=== PATIENT | female | born 1940 | race Caucasian/White ===

== ENCOUNTER 2020-06-13 08:39 | Inpatient (IN) | payer MEDICARE, OTHER, SELFPAY ==
[2020-06-13] VITALS (24 sets, daily range): BP systolic 66–150; BP diastolic 40–98; PULSE 71–101; RESP 11–22; TEMP 36.2–36.8; O2SAT 73–100
--- NOTE | ~2020-06-13 | XR_ITS ---
EXAMINATION: XR chest 1V INDICATION: Chest pain TECHNIQUE: AP view of the chest is obtained. COMPARISON: None available FINDINGS: There are minimal airspace opacities of the left lung base. No pleural effusion or pneumoth orax is identified. The cardiomediastinal silhouette is normal. There is moderate lower thoracic spon dylosis. IMPRESSION: 1. Minimal airspace opacities of the left lung base, consistent with atelectasis versus pneumonia. Reviewed, dictated and finalized at location A. IMPRESSION: 1. Minimal airspace opacities of the left lung base, consistent with atelectasi s versus pneumonia.
--- NOTE | ~2020-06-13 | CT_ITS ---
EXAMINATION: CT thoracic lumbar wo con DATE: 06/13/2020 11:15 INDICATION: Increasing immobility post lumbar spine surgery TECHNIQUE: Computed tomography (CT) of the thoracic and lumbar spine was performed without intravenou s contrast. The dose-length product (DLP) was 1952.89 mGy-cm. Iterative reconstruction was used. COMPARISON: None FINDINGS: Thoracic spine: There are 2 mm of anterolisthesis of C7 on T1. Thoracic vertebral body alignment is n ormal. There is no fracture. There is advanced loss of intervertebral disc space height at T9-10 with associated endplate remodeling. There is mild to moderate loss of intervertebral disc space height t hroughout the remainder of the thoracic spine. The paraspinal soft tissues are unremarkable. There ar e minimal airspace opacities in the left lower lobe. Lumbar spine: There are changes of anterior and posterior fusion and laminectomy at L4-5. There are 3 mm of retrolisthesis of L3 on L4 and 3 mm of anterolisthesis of L4 on L5. There is severe loss of in tervertebral disc space height at L2-3 and moderate loss of intervertebral disc space height at L3-4. The vertebral body heights are maintained. No definite fluid collection is identified although evalu ation is limited by streak artifact. IMPRESSION: 1. Moderate lower thoracic spondylosis without acute findings. 2. Surgical changes at L4-5 without definite abnormality identified, sensitivity limited by streak ar tifact. 3. Left basilar airspace opacity, consistent with atelectasis and pneumonia. Reviewed, dictated and finalized at location A. IMPRESSION: 1. Moderate lower thoracic spondylosis without acute findings. 2. Surgical changes at L4-5 without definite abnormality identified, sensitivit y limited by streak artifact. 3. Left basilar airspace opacity, consistent with atelectasis and pneumonia.
--- NOTE | ~2020-06-13 | CT_ITS ---
EXAMINATION: CT brain wo con INDICATION: Altered mental status COMPARISON: None TECHNIQUE: Standard unenhanced head CT. The dose-length product (DLP) was 908.00 mGy-cm. The mA was a djusted according to patient size. Iterative reconstruction technique was employed. FINDINGS: There is no acute intraparenchymal hemorrhage. No evidence of mass lesion. No evidence of a cute infarction. There is mild periventricular and subcortical hypodensity probably related to small vessel ischemic disease. There is mild prominence of the sulci and ventricles related to cerebral atr ophy. Intracranial calcified cerebral atherosclerosis is noted. There are no extra-axial collections. There is no mass effect or midline shift. The orbits and soft tissues are unremarkable. The visuali zed sinuses and mastoid air cells are well aerated. IMPRESSION: 1. No acute intracranial abnormality. 2. Age related findings. Reviewed, dictated and finalized at location A.
--- NOTE | 2020-06-13 08:43 | ED.CHESTPAIN ---
HPI - Chest Pain General Chief Complaint: Chest Pain Stated Complaint: CP Time Seen by Provider: 06/13/20 08:43 Source: family and EMS Mode of arrival: EMS Limitations: clinical condition and dementia History of Present Illness HPI narrative: Patient is a 80-year-old female with a history of hypertension, hyperlipidemia, spinal stenosis, recent surgery beginning of May at [facility] [place], at which patient developed weakness while in recovery at [facility],then hospitalized at [facility] for a week. Pt had negative work up at [facility] per daughter and was discharged to [facility] for rehabilitation. Since that time, patient has continued to have transient altered mentation for which the patient has been worked up for dementia and stroke. Pt also with recurrent UTI since being at [facility]. Much of history is provided by daughter. Prior to her surgery she was completely independent in all her activities of daily living and was supposed to go home after the surgery. Currently, this morning the patient was reporting to care staff that she was having chest pain thus an ambulance was called to have her evaluated. Patient was transported to our facility in stable condition. Apparently she does reside on a floor with positive COVID patients at [place]. She has recently tested negative for this. Pt is currently confused. She is denying fever, chills or chest pain. At the time of my assessment, patient is denying any chest pain but she is not reliable historian and I cannot obtain any history from her. Per daughter in the room, pt often is confused and this has been constant over the past two weeks. Related Data Home Medications Medication Instructions Recorded Confirmed citalopram 20 mg PO DAILY 06/13/20 clopidogrel 75 mg PO DAILY 06/13/20 docusate sodium 100 mg PO DAILY 06/13/20 enoxaparin 40 mg SUBCUT DAILY 06/13/20 famotidine 20 mg PO BID 06/13/20 hydrochlorothiazide 12.5 mg PO DAILY 06/13/20 lorazepam [Ativan] 0.5 mg PO BID PRN 06/13/20 losartan 100 mg PO DAILY 06/13/20 melatonin 5 mg PO HS PRN 06/13/20 tapentadol [Nucynta] 50 mg PO Q4-6H PRN 06/13/20 Allergies Allergy/AdvReac Type Severity Reaction Status Date / Time No Known Allergies Allergy Verified 06/13/20 09:51 Review of Systems Review of Systems: ROS unobtainable: Yes unobtainable due to mental status PMFSH Past Medical History Medical History (Updated 06/13/20 @ 12:57 by Natalie Villafuerte MD) Hyperlipidemia Hypertension Spinal stenosis Urinary tract infection Surgical History Surgical History (Updated 06/13/20 @ 09:12 by Natalie Villafuerte MD) History of lumbar surgery Social History Social History (Updated 06/13/20 @ 09:12 by Natalie Villafuerte MD) Smoking status: Never smoker Alcohol intake: never Substance use: never Living arrangements: long-term Gender identity (if verbalized by the patient): Female Exam Narrative: Exam Narrative: GENERAL: Awake, alert HEAD: Normocephalic, atraumatic. EYES: PERRLA and EOMI. ENT: Nares clear, no rhinorrhea or epistaxis. Mucous membranes dry NECK: Supple. CHEST: No respiratory distress, breathing even and non labored HEART: Regular rate, sinus rhythm ABDOMEN:Non distended, non tender EXTREMITIES: Normal range of motion. No edema. Thorax: Lumbar surgical site is clean, dry and intact without dehiscence purulent discharge or malodor, non tender SKIN: Warm, dry, no rash. NEURO:No focal deficits. Alert and oriented x1, can identify her name, can identify daughter in the room, understands she is at a hospital, but cannot name hospital Course Vital Signs Vital signs: Vital Signs Temperature 36.8 C 06/13/20 08:42 Pulse Rate 97 06/13/20 08:42 Respiratory Rate 20 06/13/20 08:42 Blood Pressure 122/90 06/13/20 08:42 Pulse Oximetry 96 06/13/20 08:42 Temperature 36.8 C 06/13/20 08:42 Pulse Rate 75 06/13/20 13:49 Re
--- NOTE | 2020-06-13 08:52 | ECG_ITS ---
Measurements Intervals [place] Rate: 92 P: 56 NE: 177 QRS: 22 QRSD: 93 T: 61 QT: 364 QTc: 452 Interpretive Statements SINUS RHYTHM POSSIBLE LEFT ATRIAL ENLARGEMENT BASELINE ARTIFACT- I, II, III, AVR, AVL, AVF, V1-V6 BORDERLINE ECG Electronically Signed On 06-17-2020 12:43:03 CDT by Familia Dorantes D.O.
[2020-06-13] MEDS: ASPIRIN 81 MG CHEWABLE TABLET 324 MG PO (09:52)
[2020-06-13 09:55] LABS: Basophils Percent Auto 0.4 % (0.2-1.2); Eosinophils Absolute Auto 0.5 K/mm3 (0-0.3); Hematocrit 36.2 % (37.0-47.0); Hemoglobin 12.5 g/dL (12.0-15.0); Immature Granulocyte Absolute 0.04 K/mm3 (0.00-0.031); Immature Granulocyte Percent A 0.4 % (0-0.5); Lymphocytes Absolute Auto 1.14 K/mm3 (0.9-3.2); Lymphocytes Percent Auto 11.7 % (18.3-44.2); Mean Corpuscular HGB Conc 34.5 g/dl (32-36); Mean Corpuscular Hemoglobin 31.8 pg (26-34); Mean Corpuscular Volume 92.1 fl (80-100); Mean Platelet Volume 10.8 fl (7.4-10.4); Monocytes Absolute Auto 1.3 K/mm3 (0.1-0.6); Monocytes Percent Auto 13.7 % (2.6-8.5); Neutrophils Absolute Auto 6.7 K/mm3 (1.3-6.7); Neutrophils Percent Auto 68.8 % (45.5-73.1); Platelet Count Result 294 k/mm3 (150-375); Red Blood Count 3.93 M/mm3 (4.2-5.4); White Blood Count 9.7 K/mm3 (4.5-10.0)
[2020-06-13 10:08] LABS: Alanine Aminotransferase 30 U/L (4-35); Albumin Level 3.6 g/dL (3.5-5.1); Alkaline Phosphatase 89 U/L (38-126); Anion Gap 10 mmol/L (8-16); Aspartate Amino Transferase 27 U/L (14-36); Bilirubin,Total 0.5 mg/dL (0.2-1.3); Blood Urea Nitrogen 67 mg/dL (7-17); Calcium 9.4 mg/dL (8.4-10.2); Carbon Dioxide 27 mmol/L (22-30); Chloride 92 mmol/L (98-107); Estimated Glomerular Filt Rate 19; Glucose 127 mg/dL (65-105); Sodium 129 mmol/L (137-145)
[2020-06-13 10:11] LABS: INR 1.1; Prothrombin Time 14.2 Seconds (11.1-14.7)
[2020-06-13 10:12] LABS: Partial Thromboplastin Time 29.7 SECONDS (22.3-36.8)
[2020-06-13 10:27] LABS: Add Urine Microscopic? YES; Appearance Urine Turbid (Clear); Bacteria Urine 4+ /hpf; Bilirubin Urine Negative (Negative); Blood Urine Negative (Negative); Color Urine Yellow (Yellow); Glucose Urine UA 1+ mg/dL (Negative); Ketones Urine Negative (Negative); Leukocyte Esterase Ur 2+ LEU/UL (Negative); Nitrate Urine Negative (Negative); Protein Urine 2+ mg/dL (Negative); Specific Grav Ur 1.018 (1.001-1.035); Urobilinogen Urine Negative mg/dL (<2.0); WBC Clumps Urine Present /HPF; WBC Urine >75 /hpf
[2020-06-13] MEDS: SODIUM CHLORIDE 0.9% IV 1,000 ML 999 ML IV CONT ×2 (10:36)
[2020-06-13 10:56] LABS: Troponin I 0.095 ng/mL (0.000-0.034)
--- NOTE | 2020-06-13 11:04 | PC.NURSE ---
Pt taken to CT and x ray
[2020-06-13 11:09] LABS: Lactic Acid Reflex 1.8 mmol/L (0.7-2.1)
[2020-06-13] MEDS: SODIUM CHLORIDE 0.9% IV 1,000 ML 150 ML IV CONT (13:37)
[2020-06-13 13:45] LABS: Troponin I 0.075 ng/mL (0.000-0.034)
--- NOTE | 2020-06-13 15:00 | PM.IMHP ---
H&P: HPI History of Present Illness Date/Time: 06/13/20 15:00 Chief complaint: Chest pain. Narrative: Consuelo Marie is a 80-year-old female with hypertension, GERD, depression, and anxiety presented to the emergency department earlier today via EMS from [place] with complaints of chest pain. I have supplemented the following history via discussions with her daughters by phone, with the patient's permission, as the patient has waxing and waning confusion and delirium. At the time my evaluation, she believes that she is in a bath tub and that no one will let her out. According to her nurse, she has had some hallucinations as well, for example she reports being at a strip club. Other times throughout the interview, she seems to provide a normal history and is appropriate. In any regard, a little over a month ago she had an outpatient lumbar fusion and laminectomy and was hospitalized at [facility] in [place] following that procedure due to weakness which apparently developed in the PACU. It is my understanding that she had a pretty significant and negative workup during a nearly weeks long hospitalization. She was discharged to [facility] for rehabilitation, and since that time she has had transient episodes of delirium, has been treated for urinary tract infections, and has been evaluated by specialists to investigate for possible dementia. Due to her high anxiety, she was started on Ativan 0.5 mg b.i.d. which her daughter seems to think is causing more issues; at home the patient uses CBD gummies for her average anxiety. This morning she complained of chest pain to staff at [facility], and was brought to the emergency department via ambulance for evaluation. According to the EMS run report, she reported midsternal chest pressure without associated symptoms however was a bit nauseated earlier in the morning. She has not had a recurrence of this chest discomfort since being admitted to the floor, and she relates to me that she was having this chest pain earlier today because of her anxiety about being at [facility], and she tells me that is horrible there and she is never going to return. She has no obvious complaints at this time, and she perseverates on the fact that she is never going back to [facility] and that she wants to go home. In the emergency department she was found to have an acute kidney injury and is quite dehydrated. Her blood pressures were running soft but have responded to IV fluid rehydration. The patient tells me that she has not been eating or drinking much at [facility] because she is not hungry and she is depressed being there. Her urinalysis is concerning for urinary tract infection and she endorses dysuria and occasional incontinence and urgency with hesitancy. A Schafer catheter has since been placed and yielded approximately 300 cc of relatively clear urine. Troponins were mildly elevated, and she is being admitted in this setting for further evaluation. Also of note, she was swabbed for COVID-19 emergency department given findings of atelectasis versus pneumonia at the left base on imaging today. Although she has no symptoms to suggest COVID-19, we were informed by EMS that she is on the COVID unit at [facility] for unclear reasons. Review of Systems Review of Systems: Narrative: Twelve systems were reviewed with pertinent positives and negatives as per HPI. A review of systems is limited given her confusion and delirium. she does specifically deny fever, chills, sweats, cough, current chest pain, palpitations, shortness of breath, current nausea, vomiting, and diarrhea. She does not believe she has been moving her bowels very much. She denies dysphagia. No headache or focal weakness. She admits that sometimes she is forgetful but She is very aware of her confusion over the past month or so. She is not having any pain at the site of her lumbar surgery. She denies saddle anesthesia, incontinence, paresthesias, and focal weakness. Except as documented
--- NOTE | 2020-06-13 15:08 | PC.NURSE ---
Pt admitted to ICU-6 from ER, pt is on room air, awake and alert, confused. NSR on monitor, BP stable.
[2020-06-13] MEDS: FAMOTIDINE 20 MG TABLET PO (19:14)
[2020-06-13] MEDS: busPIRone HCL 2.5 MG, busPIRone HCL 5 MG 7.5 MG PO (20:27)
[2020-06-13 20:39] LABS: Anion Gap 6 mmol/L (8-16); Blood Urea Nitrogen 50 mg/dL (7-17); Calcium 8.6 mg/dL (8.4-10.2); Carbon Dioxide 25 mmol/L (22-30); Chloride 100 mmol/L (98-107); Creatine Kinase 89 U/L (30-135); Estimated CRCL calculation 23 ml/min; Estimated Glomerular Filt Rate 27; Glucose 99 mg/dL (65-105); Magnesium 1.9 mg/dL (1.6-2.3); Sodium 131 mmol/L (137-145)
[2020-06-13 21:35] LABS: Folic Acid 14.4 ng/mL (2.76->20)
[2020-06-13 22:52] LABS: Troponin I 0.079 ng/mL (0.000-0.034)
[2020-06-13] MEDS: POTASSIUM CHLORIDE 20 MEQ PACKET (FOR LIQUID) PO (23:52)
[2020-06-13] MEDS: SODIUM CHLORIDE 0.9% IV 1,000 ML 100 ML IV CONT (23:53)
[2020-06-14] VITALS (14 sets, daily range): BP systolic 89–158; BP diastolic 45–95; PULSE 79–103; RESP 13–23; TEMP 36.2–36.7; O2SAT 95–100; BMI 31.6
[2020-06-14 03:36] LABS: Hematocrit 22.8 % (37.0-47.0); Hemoglobin 7.9 g/dL (12.0-15.0); Mean Corpuscular HGB Conc 34.6 g/dl (32-36); Mean Corpuscular Hemoglobin 32.6 pg (26-34); Mean Corpuscular Volume 94.2 fl (80-100); Mean Platelet Volume 10.9 fl (7.4-10.4); Platelet Count Result 281 k/mm3 (150-375); Red Blood Count 2.42 M/mm3 (4.2-5.4); White Blood Count 10.9 K/mm3 (4.5-10.0)
[2020-06-14 03:47] LABS: Anion Gap 5 mmol/L (8-16); Blood Urea Nitrogen 43 mg/dL (7-17); Calcium 8.6 mg/dL (8.4-10.2); Carbon Dioxide 24 mmol/L (22-30); Chloride 103 mmol/L (98-107); Estimated CRCL calculation 29 ml/min; Estimated Glomerular Filt Rate 36; Glucose 107 mg/dL (65-105); Potassium 3.5 mmol/L (3.4-5.0); Sodium 132 mmol/L (137-145)
--- NOTE | 2020-06-14 05:46 | PC.NURSE ---
06/14/20: 0215 Patient pulled out second IV after verbalizing understanding on importance of IV and medications. Patient had a notable amount of blood loss due to the catheter of IV remaining in vein until this nurse came into patient's room to remove the IV catheter and apply pressure. Patient denies c/o pain or sob. Patient vital signs being monitored. 06/14/20; 0245 Patient's blood pressure 89/73. 06/14/20: 0345 Patient's blood pressure 83/69. made aware. Orders received.
[2020-06-14] MEDS: SODIUM CHLORIDE 0.9% IV 1,000 ML 100 ML IV CONT ×2 (09:58→20:10)
[2020-06-14] MEDS: CHOLECALCIFEROL 1,000 UNITS TABLET 5000 UNITS PO (09:59)
[2020-06-14] MEDS: CLOPIDOGREL BISULFATE 75 MG TABLET PO (10:00)
[2020-06-14] MEDS: FAMOTIDINE 20 MG TABLET PO ×2 (10:00→17:09)
[2020-06-14] MEDS: busPIRone HCL 2.5 MG, busPIRone HCL 5 MG 7.5 MG PO ×2 (10:00→20:10)
[2020-06-14] MEDS: CITALOPRAM HYDROBROMIDE 20 MG TABLET PO (10:00)
[2020-06-14] MEDS: DOCUSATE SODIUM 100 MG CAPSULE PO ×2 (13:31→17:08)
--- NOTE | 2020-06-14 16:22 | P.PNIM_ITS ---
Progress Note: A&P Assessment and Plan (1) Chest pain: Code(s): R07.9 - Chest pain, unspecified Status: Acute Assessment and Plan: * Patient [id number] that she was having chest discomfort due to her anxiety, however her troponin level is elevated but flat with renal failure. Will follow * Given reports of a significant workup at [facility] within the last month, I will hold on ordering an echocardiogram pending results to see if 1 was done there. * Pulmonary embolism seems less likely as she has been on enoxaparin for DVT prophylaxis. (2) Elevated troponin: Code(s): R79.89 - Other specified abnormal findings of blood chemistry Status: Acute Assessment and Plan: * First two troponins have been flat, and likely are not indicative of acute coronary syndrome. * Plan is as detailed above. (3) Acute kidney injury: Code(s): N17.9 - Acute kidney failure, unspecified Status: Acute Assessment and Plan: * She appears profoundly dehydrated and I assume this is the etiology of her renal failure. * We will continue with IV fluid rehydration and repeat renal function today revealed a creatinine of 1.4 (4) Acute dehydration: Code(s): E86.0 - Dehydration Status: Acute Assessment and Plan: * It does not sound as though she has been eating or drinking well at [place] and she tells me that is because she is depressed being there. I had her drink some water at bedside and there is no gross evidence to suggest dysphagia. * Continue IV fluid rehydration as detailed above. (5) Urinary tract infection: Qualifiers: Hematuria presence: without hematuria Urinary tract infection type: acute cystitis Qualified Code(s): N30.00 - Acute cystitis without hematuria Code(s): N39.0 - Urinary tract infection, site not specified Status: Acute Assessment and Plan: * Ceftriaxone, pending urine culture. (6) Metabolic encephalopathy: Code(s): G93.41 - Metabolic encephalopathy Status: Acute Assessment and Plan: * Multifactorial in etiology to include dehydration, electrolyte abnormalities, urinary tract infection, and delirium likely due to the addition of Ativan in the setting of a new environment. * I suspect her mentation will continue to improve with hydration, electrolyte repletion, antibiotics, and cessation of Ativan. (7) Abnormal chest x-ray: Code(s): R93.89 - Abnormal findings on diagnostic imaging of other specified body structures Status: Acute Assessment and Plan: * Minimal airspace opacities of the left lung consistent with atelectasis versus pneumonia. * Pneumonia seems less likely by history however she is on a COVID unit at [facility] thus she has been tested for such. (8) Electrolyte abnormality: Code(s): E87.8 - Other disorders of electrolyte and fluid balance, not elsewhere cla ssified Status: Acute Assessment and Plan: * Including mild hyponatremia, hypokalemia, and hypochloremia. * Secondary to dehydration in the setting of thiazide diuretic use. * Cherry
--- NOTE | 2020-06-14 16:22 | PM.IMPN ---
Progress Note: A&P Assessment and Plan (1) Chest pain: Code(s): R07.9 - Chest pain, unspecified Status: Acute Assessment and Plan: Patient [id number] that she was having chest discomfort due to her anxiety, however her troponin level is elevated but flat with renal failure. Will follow Given reports of a significant workup at [facility] within the last month, I will hold on ordering an echocardiogram pending results to see if 1 was done there. Pulmonary embolism seems less likely as she has been on enoxaparin for DVT prophylaxis. (2) Elevated troponin: Code(s): R79.89 - Other specified abnormal findings of blood chemistry Status: Acute Assessment and Plan: First two troponins have been flat, and likely are not indicative of acute coronary syndrome. Plan is as detailed above. (3) Acute kidney injury: Code(s): N17.9 - Acute kidney failure, unspecified Status: Acute Assessment and Plan: She appears profoundly dehydrated and I assume this is the etiology of her renal failure. We will continue with IV fluid rehydration and repeat renal function today revealed a creatinine of 1.4 (4) Acute dehydration: Code(s): E86.0 - Dehydration Status: Acute Assessment and Plan: It does not sound as though she has been eating or drinking well at [facility] and she tells me that is because she is depressed being there. I had her drink some water at bedside and there is no gross evidence to suggest dysphagia. Continue IV fluid rehydration as detailed above. (5) Urinary tract infection: Qualifiers: Hematuria presence: without hematuria Urinary tract infection type: acute cystitis Qualified Code(s): N30.00 - Acute cystitis without hematuria Code(s): N39.0 - Urinary tract infection, site not specified Status: Acute Assessment and Plan: Ceftriaxone, pending urine culture. (6) Metabolic encephalopathy: Code(s): G93.41 - Metabolic encephalopathy Status: Acute Assessment and Plan: Multifactorial in etiology to include dehydration, electrolyte abnormalities, urinary tract infection, and delirium likely due to the addition of Ativan in the setting of a new environment. I suspect her mentation will continue to improve with hydration, electrolyte repletion, antibiotics, and cessation of Ativan. (7) Abnormal chest x-ray: Code(s): R93.89 - Abnormal findings on diagnostic imaging of other specified body structures Status: Acute Assessment and Plan: Minimal airspace opacities of the left lung consistent with atelectasis versus pneumonia. Pneumonia seems less likely by history however she is on a COVID unit at [facility] thus she has been tested for such. (8) Electrolyte abnormality: Code(s): E87.8 - Other disorders of electrolyte and fluid balance, not elsewhere classified Status: Acute Assessment and Plan: Including mild hyponatremia, hypokalemia, and hypochloremia. Secondary to dehydration in the setting of thiazide diuretic use. Electrolytes all improved (9) Hypertension: Code(s): I10 - Essential (primary) hypertension Status: Acute Assessment and Plan: Blood pressures were soft in the emergency department, but has responded to IV fluids. Antihypertensives are on hold at this time. (10) Depression with anxiety: Code(s):
[2020-06-14 17:02] LABS: SARS-CoV-2 RNA PCR Negative
[2020-06-14] MEDS: ENOXAPARIN 40 MG/0.4 ML SYRINGE SUB-Q (17:08)
[2020-06-14] MEDS: MELATONIN 5 MG TABLET PO (20:10)
--- NOTE | 2020-06-14 22:36 | PC.NURSE ---
This patient, Consuelo Marie, was transferred to [305-02] on 06/14/20 at 2237. Personal belongings sent with patient. Belongings list checked and signed with receiving [ ]. Report given to [ Xena caro]. Appropriate documentation sent with patient.
--- NOTE | 2020-06-14 23:02 | PC.NURSE ---
2230 Pt arrived to room 305-2 from ICU. Side rails up x2. Bed alarm activated. No complaint of discomfort. No sign/symptom respiratory distress. IV fluids infusing per order. Indwelling briones catheter patent. Pt oriented to room, needs reinforcement/reiteration due to cognitive difficulty. Pt alert to self only. Pt positioned for comfort. External stimuli diminished for patient comfort. Resting in bed quietly with eyes closed s/p physical assessment.
--- NOTE | 2020-06-15 | ECHO_ITS ---
Patient Info Name: Consuelo Marie Age: 80 years : 1940 Gender: Female Ht: 62 in Wt: 173 lbs BSA: 1.88 m2 HR: 90 bpm BP: 91 / 47 mmHg Heart Rhythm: Sinus Rhythm Technical Quality: Good Exam Date: 06/15/2020 2:11 PM Exam Location: [facility] Patient Status: Inpatient Admit Date: 06/13/2020 Staff Ordering Physician: Faizan Gray MD Punch Molder: He Jose RDCS, RT Attending Provider: Tyler Robbins MD Referring Physician: Isaac CARDOSO; Exam Type: CA echo dop color flow w con Study Info Indications R53.1 - Weakness Complete two-dimensional, color flow and Doppler transthoracic echocardiogram is performed with contrast to opacify the left ventricle and to improve the deliniation of the left ventricle endocardial borders. Summary 1. Left ventricular systolic function is hyperdynamic, estimated at 75%. 2. There is no increased left ventricular wall thickness. 3. The left ventricular diastolic function is grade I diastolic dysfunction. 4. There is no aortic valve stenosis. 5. There is trace mitral valve regurgitation. 6. Unable to estimate PA systolic pressure due to poor spectral resolution of tricuspid regurgitant jet velocity. Left Ventricle Left ventricular chamber dimension is normal. Left ventricular systolic function is hyperdynamic, estimated at 75%. There is no increased left ventricular wall thickness. The left ventricular diastolic function is grade I diastolic dysfunction. Right Ventricle Right ventricular chamber dimension is normal. Right ventricular systolic function is normal. Left Atria Left atrial chamber dimension is normal. Right Atria Right atrial chamber dimension is normal. Aortic Valve The aortic valve is probable trileaflet. There is mild aortic valve sclerosis. There is no aortic valve stenosis. There is no aortic valve regurgitation. Mitral Valve The mitral valve has normal leaflets. There is trace mitral valve regurgitation. The mitral valve annulus is mildly calcified. Tricuspid Valve The tricuspid valve leaflets are not well visualized. Unable to estimate PA systolic pressure due to poor spectral resolution of tricuspid regurgitant jet velocity. Pericardium/Pleural The pericardium appears epicardial fat pad. There is no pericardial effusion. Inferior Vena Cava Normal inferior vena cava with >50% collapse upon inspiration consistent with normal right atrial pressure, 5 mmHg. Aorta The aortic root size at the sinus of Valsalva is normal. Left Ventricular Outflow Tract Name Value Normal LVOT 2D LVOT Diameter 1.94 cm LVOT Doppler LVOT Peak Gradient 8 mmHg LVOT Mean Gradient 4 mmHg LVOT VTI 24.54 cm LVOT VTI/AV VTI Ratio 0.86 LVOT Stroke Volume 72.78 ml LVOT CO 6.71 l/min LVOT CI 3.56 L/min/m2 Mitral Valve Name
[2020-06-15] MEDS: SODIUM CHLORIDE 0.9% IV 1,000 ML 100 ML IV CONT (05:34)
[2020-06-15 05:56] LABS: Basophils Percent Auto 0.3 % (0.2-1.2); Eosinophils Absolute Auto 0.6 K/mm3 (0-0.3); Eosinophils Percent Auto 9.8 % (0-4.4); Hematocrit 24.9 % (37.0-47.0); Hemoglobin 8.6 g/dL (12.0-15.0); Immature Granulocyte Absolute 0.01 K/mm3 (0.00-0.031); Immature Granulocyte Percent A 0.2 % (0-0.5); Immature Reticulocyte Fraction 5.2 % (3.0-15.9); Lymphocytes Absolute Auto 1.35 K/mm3 (0.9-3.2); Lymphocytes Percent Auto 21.8 % (18.3-44.2); Mean Corpuscular HGB Conc 34.5 g/dl (32-36); Mean Corpuscular Hemoglobin 32.8 pg (26-34); Mean Platelet Volume 10.8 fl (7.4-10.4); Monocytes Absolute Auto 0.9 K/mm3 (0.1-0.6); Neutrophils Absolute Auto 3.3 K/mm3 (1.3-6.7); Neutrophils Percent Auto 52.9 % (45.5-73.1); Platelet Count Result 216 k/mm3 (150-375); Red Blood Count 2.62 M/mm3 (4.2-5.4); Red Cell Distribution Width 12.4 % (11.5-14.5); Reticulocyte Hemoglobin Conten 36.9 pg (28.2-35.7); Reticulocyte Percent 1.45 % (0.7-4.3); Reticulocytes Absolute 0.04 B/L (32.2-175.7); White Blood Count 6.2 K/mm3 (4.5-10.0)
[2020-06-15 06:00] VITALS: BP 91/47; PULSE 87; RESP 18; TEMP 36.7; O2SAT 99
[2020-06-15 06:17] LABS: Albumin Level 2.6 g/dL (3.5-5.1); Anion Gap 2 mmol/L (8-16); Blood Urea Nitrogen 22 mg/dL (7-17); Calcium 8.5 mg/dL (8.4-10.2); Carbon Dioxide 27 mmol/L (22-30); Chloride 105 mmol/L (98-107); Estimated CRCL calculation 39 ml/min; Estimated Glomerular Filt Rate 53; Glucose 91 mg/dL (65-105); Phosphorus 2.3 mg/dL (2.5-4.5); Potassium 3.3 mmol/L (3.4-5.0); Sodium 134 mmol/L (137-145)
[2020-06-15 06:18] LABS: Iron 31 ug/dL (37-170)
[2020-06-15 06:28] LABS: Percent Iron Saturation 15 % (20-50)
[2020-06-15 08:00] VITALS: BP 120/72; PULSE 105; RESP 18; TEMP 36.6; O2SAT 98
[2020-06-15] MEDS: POTASSIUM CHLORIDE 20 MEQ PACKET (FOR LIQUID) 40 MEQ PO (08:51)
[2020-06-15] MEDS: busPIRone HCL 2.5 MG, busPIRone HCL 5 MG 7.5 MG PO ×2 (08:52→20:08)
[2020-06-15] MEDS: CHOLECALCIFEROL 1,000 UNITS TABLET 5000 UNITS PO (08:52)
[2020-06-15] MEDS: CITALOPRAM HYDROBROMIDE 20 MG TABLET PO (08:52)
[2020-06-15] MEDS: CLOPIDOGREL BISULFATE 75 MG TABLET PO (08:52)
[2020-06-15] MEDS: ENOXAPARIN 40 MG/0.4 ML SYRINGE SUB-Q (08:52)
[2020-06-15] MEDS: FAMOTIDINE 20 MG TABLET PO ×2 (08:52→17:31)
[2020-06-15] MEDS: DOCUSATE SODIUM 100 MG CAPSULE PO ×2 (08:52→17:31)
[2020-06-15] MEDS: POTASSIUM PHOS,M-BASIC-D-BASIC 20 MMOL in SODIUM CHLORIDE 0.9% IV 250 ML 62.5 MMOL IVPB (09:00)
[2020-06-15] MEDS: ACETAMINOPHEN 325 MG TABLET 650 MG PO ×2 (09:07→13:26)
[2020-06-15 12:35] VITALS: BP 78/60
[2020-06-15 12:38] VITALS: BP 114/69
[2020-06-15] MEDS: PERFLUTREN LIPID MICROSPHERES 1.5 ML VIAL DILUTED TO 10 ML TOTAL VOLUME IV PUSH (14:47)
--- NOTE | 2020-06-15 16:29 | P.PNIM_ITS ---
Progress Note: A&P Assessment and Plan (1) Chest pain: Code(s): R07.9 - Chest pain, unspecified Status: Acute Assessment and Plan: * Patient maintained that she was having chest discomfort due to her anxiety, however her troponin level is elevated but flat with renal failure. Will follow and obtain echo * Given reports of a significant workup at [facility] within the last month * Pulmonary embolism seems less likely as she has been on enoxaparin for DVT prophylaxis. (2) Elevated troponin: Code(s): R79.89 - Other specified abnormal findings of blood chemistry Status: Acute Assessment and Plan: * First two troponins have been flat, and likely are not indicative of acute coronary syndrome. * echo revealed no wall motion abnormalities * Plan is as detailed above. (3) Acute kidney injury: Code(s): N17.9 - Acute kidney failure, unspecified Status: Acute Assessment and Plan: * She appears profoundly dehydrated and I assume this is the etiology of her renal failure. * with IV fluid rehydration and repeat renal function today revealed a creatinine of 1.0 (4) Acute dehydration: Code(s): E86.0 - Dehydration Status: Acute Assessment and Plan: * It does not sound as though she has been eating or drinking well at [place] and she tells me that is because she is depressed being there. * IV fluid rehydration as detailed above. (5) Urinary tract infection: Qualifiers: Hematuria presence: without hematuria Urinary tract infection type: acute cystitis Qualified Code(s): N30.00 - Acute cystitis without hematuria Code(s): N39.0 - Urinary tract infection, site not specified Status: Acute Assessment and Plan: * Ceftriaxone, pending urine culture. growing Klebsiella and E coli (6) Metabolic encephalopathy: Code(s): G93.41 - Metabolic encephalopathy Status: Acute Assessment and Plan: * Multifactorial in etiology to include dehydration, electrolyte abnormalities, urinary tract infection, and delirium likely due to the addition of Ativan in the setting of a new environment. * I suspect her mentation will continue to improve with hydration, electrolyte repletion, antibiotics, and cessation of Ativan. * TSH and B12 normal (7) Abnormal chest x-ray: Code(s): R93.89 - Abnormal findings on diagnostic imaging of other specified body structures Status: Acute Assessment and Plan: * Minimal airspace opacities of the left lung consistent with atelectasis versus pneumonia. * Pneumonia seems less likely by history however she is on a COVID unit at [place] thus she has been tested and found to be negative (8) Electrolyte abnormality: Code(s): E87.8 - Other disorders of electrolyte and fluid balance, not elsewhere classified Status: Acute Assessment and Plan: * Including mild hyponatremia, hypokalemia, and hypochloremia. * Secondary to dehydration in the setting of thiazide diuretic use. * Electrolytes all improved
--- NOTE | 2020-06-15 16:29 | PM.IMPN ---
Progress Note: A&P Assessment and Plan (1) Chest pain: Code(s): R07.9 - Chest pain, unspecified Status: Acute Assessment and Plan: Patient maintained that she was having chest discomfort due to her anxiety, however her troponin level is elevated but flat with renal failure. Will follow and obtain echo Given reports of a significant workup at [facility] within the last month Pulmonary embolism seems less likely as she has been on enoxaparin for DVT prophylaxis. (2) Elevated troponin: Code(s): R79.89 - Other specified abnormal findings of blood chemistry Status: Acute Assessment and Plan: First two troponins have been flat, and likely are not indicative of acute coronary syndrome. echo revealed no wall motion abnormalities Plan is as detailed above. (3) Acute kidney injury: Code(s): N17.9 - Acute kidney failure, unspecified Status: Acute Assessment and Plan: She appears profoundly dehydrated and I assume this is the etiology of her renal failure. with IV fluid rehydration and repeat renal function today revealed a creatinine of 1.0 (4) Acute dehydration: Code(s): E86.0 - Dehydration Status: Acute Assessment and Plan: It does not sound as though she has been eating or drinking well at [place] and she tells me that is because she is depressed being there. IV fluid rehydration as detailed above. (5) Urinary tract infection: Qualifiers: Hematuria presence: without hematuria Urinary tract infection type: acute cystitis Qualified Code(s): N30.00 - Acute cystitis without hematuria Code(s): N39.0 - Urinary tract infection, site not specified Status: Acute Assessment and Plan: Ceftriaxone, pending urine culture. growing Klebsiella and E coli (6) Metabolic encephalopathy: Code(s): G93.41 - Metabolic encephalopathy Status: Acute Assessment and Plan: Multifactorial in etiology to include dehydration, electrolyte abnormalities, urinary tract infection, and delirium likely due to the addition of Ativan in the setting of a new environment. I suspect her mentation will continue to improve with hydration, electrolyte repletion, antibiotics, and cessation of Ativan. TSH and B12 normal (7) Abnormal chest x-ray: Code(s): R93.89 - Abnormal findings on diagnostic imaging of other specified body structures Status: Acute Assessment and Plan: Minimal airspace opacities of the left lung consistent with atelectasis versus pneumonia. Pneumonia seems less likely by history however she is on a COVID unit at [place] thus she has been tested and found to be negative (8) Electrolyte abnormality: Code(s): E87.8 - Other disorders of electrolyte and fluid balance, not elsewhere classified Status: Acute Assessment and Plan: Including mild hyponatremia, hypokalemia, and hypochloremia. Secondary to dehydration in the setting of thiazide diuretic use. Electrolytes all improved (9) Hypertension: Code(s): I10 - Essential (primary) hypertension Status: Acute Assessment and Plan: Blood pressures were soft in the emergency department, but has responded to IV fluids. Antihypertensives are on hold at this time. (10) Depression with anxiety: Code(s): F41.8 - Other specified anxiety disorders Status: Acute Ass
[2020-06-15] MEDS: MELATONIN 5 MG TABLET PO (20:58)
[2020-06-15 22:00] VITALS: BP 120/58; PULSE 81; RESP 20; TEMP 36.9; O2SAT 98
[2020-06-16] MEDS: ACETAMINOPHEN 325 MG TABLET 650 MG PO ×3 (02:15→21:06)
[2020-06-16 05:54] LABS: Basophils Percent Auto 0.3 % (0.2-1.2); Eosinophils Absolute Auto 0.6 K/mm3 (0-0.3); Eosinophils Percent Auto 9.9 % (0-4.4); Hematocrit 23.3 % (37.0-47.0); Hemoglobin 7.9 g/dL (12.0-15.0); Immature Granulocyte Absolute 0.02 K/mm3 (0.00-0.031); Immature Granulocyte Percent A 0.3 % (0-0.5); Lymphocytes Absolute Auto 1.28 K/mm3 (0.9-3.2); Lymphocytes Percent Auto 21.2 % (18.3-44.2); Mean Corpuscular HGB Conc 33.9 g/dl (32-36); Mean Corpuscular Volume 94.3 fl (80-100); Mean Platelet Volume 10.7 fl (7.4-10.4); Monocytes Absolute Auto 0.9 K/mm3 (0.1-0.6); Monocytes Percent Auto 14.9 % (2.6-8.5); Neutrophils Absolute Auto 3.2 K/mm3 (1.3-6.7); Neutrophils Percent Auto 53.4 % (45.5-73.1); Platelet Count Result 203 k/mm3 (150-375); Red Blood Count 2.47 M/mm3 (4.2-5.4); Red Cell Distribution Width 12.3 % (11.5-14.5); White Blood Count 6.1 K/mm3 (4.5-10.0)
[2020-06-16 06:00] VITALS: BP 126/55; PULSE 82; RESP 20; TEMP 36.6; O2SAT 98
[2020-06-16 06:05] LABS: Albumin Level 2.5 g/dL (3.5-5.1); Anion Gap 5 mmol/L (8-16); Blood Urea Nitrogen 16 mg/dL (7-17); Calcium 8.4 mg/dL (8.4-10.2); Carbon Dioxide 23 mmol/L (22-30); Chloride 106 mmol/L (98-107); Estimated CRCL calculation 48 ml/min; Estimated Glomerular Filt Rate > 60; Glucose 90 mg/dL (65-105); Phosphorus 2.7 mg/dL (2.5-4.5); Potassium 3.2 mmol/L (3.4-5.0); Sodium 134 mmol/L (137-145)
[2020-06-16 08:00] VITALS: BP 106/64; PULSE 103; RESP 20; TEMP 36.2; O2SAT 99
[2020-06-16] MEDS: POTASSIUM CHLORIDE 20 MEQ TABLET 40 MEQ PO ×3 (08:15→18:22)
[2020-06-16] MEDS: ENOXAPARIN 40 MG/0.4 ML SYRINGE SUB-Q (09:36)
[2020-06-16] MEDS: FAMOTIDINE 20 MG TABLET PO ×2 (09:36→18:21)
[2020-06-16] MEDS: DOCUSATE SODIUM 100 MG CAPSULE PO ×2 (09:36→18:21)
[2020-06-16] MEDS: CLOPIDOGREL BISULFATE 75 MG TABLET PO (09:36)
[2020-06-16] MEDS: CITALOPRAM HYDROBROMIDE 20 MG TABLET PO (09:36)
[2020-06-16] MEDS: CHOLECALCIFEROL 1,000 UNITS TABLET 5000 UNITS PO (09:36)
[2020-06-16] MEDS: busPIRone HCL 2.5 MG, busPIRone HCL 5 MG 7.5 MG PO ×2 (12:17→20:56)
[2020-06-16 13:42] LABS: SARS-CoV-2 RNA PCR Negative
[2020-06-16 14:31] LABS: IFOB Positive Control Positive; Immunochemical Fecal Occult Bl Negative (N)
--- NOTE | 2020-06-16 14:39 | P.PNIM_ITS ---
Progress Note: A&P Assessment and Plan (1) Chest pain: Code(s): R07.9 - Chest pain, unspecified Status: Acute Assessment and Plan: * Patient maintained that she was having chest discomfort due to her anxiety, however her troponin level is elevated but flat with renal failure. Will follow * Given reports of a significant workup at [facility] within the last month (2) Elevated troponin: Code(s): R79.89 - Other specified abnormal findings of blood chemistry Status: Acute Assessment and Plan: * First two troponins have been flat, and likely are not indicative of acute coronary syndrome. * echo revealed no wall motion abnormalities * Plan is as detailed above. (3) Acute kidney injury: Code(s): N17.9 - Acute kidney failure, unspecified Status: Acute Assessment and Plan: * She appears profoundly dehydrated and I assume this is the etiology of her renal failure. * with IV fluid rehydration and repeat renal function today revealed a creatinine of 0.9 (4) Acute dehydration: Code(s): E86.0 - Dehydration Status: Acute Assessment and Plan: * It does not sound as though she has been eating or drinking well at [place] and planning on change of facilities at d/c * IV fluid rehydration as detailed above. (5) Urinary tract infection: Qualifiers: Hematuria presence: without hematuria Urinary tract infection type: acute cystitis Qualified Code(s): N30.00 - Acute cystitis without hematuria Code(s): N39.0 - Urinary tract infection, site not specified Status: Acute Assessment and Plan: * Ceftriaxone, . growing Klebsiella and E coli and both sensitive to ceftriaxone D# 4. (6) Metabolic encephalopathy: Code(s): G93.41 - Metabolic encephalopathy Status: Acute Assessment and Plan: * Multifactorial in etiology to include dehydration, electrolyte abnormalities, urinary tract infection, and delirium likely due to the addition of Ativan in the setting of a new environment. * her mentation has improved with hydration, electrolyte repletion, antibiotics, and cessation of Ativan. * TSH and B12 normal (7) Abnormal chest x-ray: Code(s): R93.89 - Abnormal findings on diagnostic imaging of other specified body structures Status: Acute Assessment and Plan: * Minimal airspace opacities of the left lung consistent with atelectasis versus pneumonia. * Pneumonia seems less likely by history however she is on a COVID unit at [place] thus was tested and found to be negative (8) Electrolyte abnormality: Code(s): E87.8 - Other disorders of electrolyte and fluid balance, not elsewhere classified Status: Acute Assessment and Plan: * Including mild hyponatremia, hypokalemia, and hypochloremia. * Secondary to dehydration in the setting of thiazide diuretic use. * Electrolytes all improved, k still 3.2 today and will replace (9) Hypertension: Code(s): I10 - Essential (primary) hypertension
--- NOTE | 2020-06-16 14:39 | PM.IMPN ---
Progress Note: A&P Assessment and Plan (1) Chest pain: Code(s): R07.9 - Chest pain, unspecified Status: Acute Assessment and Plan: Patient maintained that she was having chest discomfort due to her anxiety, however her troponin level is elevated but flat with renal failure. Will follow Given reports of a significant workup at [facility] within the last month (2) Elevated troponin: Code(s): R79.89 - Other specified abnormal findings of blood chemistry Status: Acute Assessment and Plan: First two troponins have been flat, and likely are not indicative of acute coronary syndrome. echo revealed no wall motion abnormalities Plan is as detailed above. (3) Acute kidney injury: Code(s): N17.9 - Acute kidney failure, unspecified Status: Acute Assessment and Plan: She appears profoundly dehydrated and I assume this is the etiology of her renal failure. with IV fluid rehydration and repeat renal function today revealed a creatinine of 0.9 (4) Acute dehydration: Code(s): E86.0 - Dehydration Status: Acute Assessment and Plan: It does not sound as though she has been eating or drinking well at [place] and planning on change of facilities at d/c IV fluid rehydration as detailed above. (5) Urinary tract infection: Qualifiers: Hematuria presence: without hematuria Urinary tract infection type: acute cystitis Qualified Code(s): N30.00 - Acute cystitis without hematuria Code(s): N39.0 - Urinary tract infection, site not specified Status: Acute Assessment and Plan: Ceftriaxone, . growing Klebsiella and E coli and both sensitive to ceftriaxone D# 4. (6) Metabolic encephalopathy: Code(s): G93.41 - Metabolic encephalopathy Status: Acute Assessment and Plan: Multifactorial in etiology to include dehydration, electrolyte abnormalities, urinary tract infection, and delirium likely due to the addition of Ativan in the setting of a new environment. her mentation has improved with hydration, electrolyte repletion, antibiotics, and cessation of Ativan. TSH and B12 normal (7) Abnormal chest x-ray: Code(s): R93.89 - Abnormal findings on diagnostic imaging of other specified body structures Status: Acute Assessment and Plan: Minimal airspace opacities of the left lung consistent with atelectasis versus pneumonia. Pneumonia seems less likely by history however she is on a COVID unit at [place] thus was tested and found to be negative (8) Electrolyte abnormality: Code(s): E87.8 - Other disorders of electrolyte and fluid balance, not elsewhere classified Status: Acute Assessment and Plan: Including mild hyponatremia, hypokalemia, and hypochloremia. Secondary to dehydration in the setting of thiazide diuretic use. Electrolytes all improved, k still 3.2 today and will replace (9) Hypertension: Code(s): I10 - Essential (primary) hypertension Status: Acute Assessment and Plan: Blood pressures were soft in the emergency department, but responded to IV fluids. Antihypertensives are on hold at this time still (10) Depression with anxiety: Code(s): F41.8 - Other specified anxiety disorders Status: Acute Assessment and Plan: The patient uses CBD gummies at home for her anxiety, which cannot be use
[2020-06-16] MEDS: MELATONIN 5 MG TABLET PO (20:56)
[2020-06-16 22:00] VITALS: BP 124/63; PULSE 74; RESP 18; TEMP 36.8; O2SAT 98
[2020-06-17 05:40] LABS: Hematocrit 25.8 % (37.0-47.0); Hemoglobin 8.6 g/dL (12.0-15.0); Mean Corpuscular HGB Conc 33.3 g/dl (32-36); Mean Corpuscular Volume 95.9 fl (80-100); Mean Platelet Volume 10.4 fl (7.4-10.4); Platelet Count Result 234 k/mm3 (150-375); Red Blood Count 2.69 M/mm3 (4.2-5.4); Red Cell Distribution Width 12.7 % (11.5-14.5); White Blood Count 6.9 K/mm3 (4.5-10.0)
[2020-06-17 06:00] VITALS: BP 123/78; PULSE 85; RESP 18; TEMP 36.2; O2SAT 100
[2020-06-17 06:03] LABS: Anion Gap 3 mmol/L (8-16); Blood Urea Nitrogen 14 mg/dL (7-17); Calcium 8.9 mg/dL (8.4-10.2); Carbon Dioxide 24 mmol/L (22-30); Chloride 108 mmol/L (98-107); Estimated CRCL calculation 49 ml/min; Estimated Glomerular Filt Rate > 60; Glucose 87 mg/dL (65-105); Potassium 4.5 mmol/L (3.4-5.0); Sodium 135 mmol/L (137-145)
[2020-06-17 08:00] VITALS: BP 87/66; PULSE 103; RESP 20; TEMP 35.9; O2SAT 99
[2020-06-17] MEDS: busPIRone HCL 2.5 MG, busPIRone HCL 5 MG 7.5 MG PO ×2 (09:03→22:13)
[2020-06-17] MEDS: FAMOTIDINE 20 MG TABLET PO ×2 (09:04→17:25)
[2020-06-17] MEDS: CHOLECALCIFEROL 1,000 UNITS TABLET 5000 UNITS PO (09:04)
[2020-06-17] MEDS: CLOPIDOGREL BISULFATE 75 MG TABLET PO (09:04)
[2020-06-17] MEDS: DOCUSATE SODIUM 100 MG CAPSULE PO ×2 (09:04→17:25)
[2020-06-17] MEDS: ENOXAPARIN 40 MG/0.4 ML SYRINGE SUB-Q (09:04)
[2020-06-17] MEDS: CITALOPRAM HYDROBROMIDE 20 MG TABLET PO (09:04)
--- NOTE | 2020-06-17 09:33 | PCPTNOTE ---
Patient requesting to return to bed after ~20 min of sitting in chair. Declined sitting up for longer period of time.
--- NOTE | 2020-06-17 11:47 | PCNFU ---
Nutrition Follow-Up Complete: Predicted suboptimal oral intake related to altered mental status as evidenced by EMR, intake of 50% x 1. Goal: Patient to consume 75% of meals/supplements or greater. Progressing towards goal. We will continue current goal. Pt current nutrition is Regular. Nutrition recommendation: Agree Last recorded weight is 80 kg up from 78.6 kg on admit. Bowel Motility:+BM reported today. Labs Reviewed:Na 135,Hct 25.8,Hgb 8.6 Meds Noted:Vit D,Colace,Pepcid. Additional Notes: Patient oriented today self. Eating cereal for breakfast today, Overall intake's have been 25-50% of meals. Patient continues to receive Ensure Compact BID providing 240 kcals and 9 gms protein. PO intake encouraged. Monitoring: Follow up every 5 days.
[2020-06-17 16:37] VITALS: BP 123/50; PULSE 92; RESP 18; TEMP 36.3; O2SAT 99
--- NOTE | 2020-06-17 17:23 | P.PNIM_ITS ---
Progress Note: A&P Assessment and Plan (1) Chest pain: Code(s): R07.9 - Chest pain, unspecified Status: Acute Assessment and Plan: * Patient maintained that she was having chest discomfort due to her anxiety, however her troponin level is elevated but flat with renal failure. * Given reports of a significant workup at [facility] within the last month (2) Elevated troponin: Code(s): R79.89 - Other specified abnormal findings of blood chemistry Status: Acute Assessment and Plan: * troponins have been flat, and likely are not indicative of acute coronary syndrome. * echo revealed no wall motion abnormalities * Plan is as detailed above. (3) Acute kidney injury: Code(s): N17.9 - Acute kidney failure, unspecified Status: Acute Assessment and Plan: * She was profoundly dehydrated and this was the etiology of her renal failure. * with IV fluid rehydration and repeat renal function today revealed a creatinine of 0.8 (4) Acute dehydration: Code(s): E86.0 - Dehydration Status: Acute Assessment and Plan: * It does not sound as though she has been eating or drinking well at [place] and planning on change of facilities at / (5) Urinary tract infection: Qualifiers: Hematuria presence: without hematuria Urinary tract infection type: acute cystitis Qualified Code(s): N30.00 - Acute cystitis without hematuria Code(s): N39.0 - Urinary tract infection, site not specified Status: Acute Assessment and Plan: * Ceftriaxone, . growing Klebsiella and E coli and both sensitive to ceftriaxone D# 5. (6) Metabolic encephalopathy: Code(s): G93.41 - Metabolic encephalopathy Status: Acute Assessment and Plan: * Multifactorial in etiology to include dehydration, electrolyte abnormalities, urinary tract infection, and delirium likely due to the addition of Ativan in the setting of a new environment. * her mentation has improved with hydration, electrolyte repletion, antibiotics, and cessation of Ativan. * TSH and B12 normal (7) Abnormal chest x-ray: Code(s): R93.89 - Abnormal findings on diagnostic imaging of other specified body structures Status: Acute Assessment and Plan: * Minimal airspace opacities of the left lung consistent with atelectasis versus pneumonia. * Pneumonia seems less likely by history however she was on a COVID unit at [place] thus she was tested and found to be negative (8) Electrolyte abnormality: Code(s): E87.8 - Other disorders of electrolyte and fluid balance, not elsewhere classified Status: Acute Assessment and Plan: * Including mild hyponatremia, hypokalemia, and hypochloremia. * Secondary to dehydration in the setting of thiazide diuretic use. * Electrolytes all improved, k 4.3 today (9) Hypertension: Code(s): I10 - Essential (primary) hypertension Status: Acute Assessment and Plan: * Blood pressures were soft in the e
--- NOTE | 2020-06-17 17:23 | PM.IMPN ---
Progress Note: A&P Assessment and Plan (1) Chest pain: Code(s): R07.9 - Chest pain, unspecified Status: Acute Assessment and Plan: Patient maintained that she was having chest discomfort due to her anxiety, however her troponin level is elevated but flat with renal failure. Given reports of a significant workup at [facility] within the last month (2) Elevated troponin: Code(s): R79.89 - Other specified abnormal findings of blood chemistry Status: Acute Assessment and Plan: troponins have been flat, and likely are not indicative of acute coronary syndrome. echo revealed no wall motion abnormalities Plan is as detailed above. (3) Acute kidney injury: Code(s): N17.9 - Acute kidney failure, unspecified Status: Acute Assessment and Plan: She was profoundly dehydrated and this was the etiology of her renal failure. with IV fluid rehydration and repeat renal function today revealed a creatinine of 0.8 (4) Acute dehydration: Code(s): E86.0 - Dehydration Status: Acute Assessment and Plan: It does not sound as though she has been eating or drinking well at [place] and planning on change of facilities at / (5) Urinary tract infection: Qualifiers: Hematuria presence: without hematuria Urinary tract infection type: acute cystitis Qualified Code(s): N30.00 - Acute cystitis without hematuria Code(s): N39.0 - Urinary tract infection, site not specified Status: Acute Assessment and Plan: Ceftriaxone, . growing Klebsiella and E coli and both sensitive to ceftriaxone D# 5. (6) Metabolic encephalopathy: Code(s): G93.41 - Metabolic encephalopathy Status: Acute Assessment and Plan: Multifactorial in etiology to include dehydration, electrolyte abnormalities, urinary tract infection, and delirium likely due to the addition of Ativan in the setting of a new environment. her mentation has improved with hydration, electrolyte repletion, antibiotics, and cessation of Ativan. TSH and B12 normal (7) Abnormal chest x-ray: Code(s): R93.89 - Abnormal findings on diagnostic imaging of other specified body structures Status: Acute Assessment and Plan: Minimal airspace opacities of the left lung consistent with atelectasis versus pneumonia. Pneumonia seems less likely by history however she was on a COVID unit at [place] thus she was tested and found to be negative (8) Electrolyte abnormality: Code(s): E87.8 - Other disorders of electrolyte and fluid balance, not elsewhere classified Status: Acute Assessment and Plan: Including mild hyponatremia, hypokalemia, and hypochloremia. Secondary to dehydration in the setting of thiazide diuretic use. Electrolytes all improved, k 4.3 today (9) Hypertension: Code(s): I10 - Essential (primary) hypertension Status: Acute Assessment and Plan: Blood pressures were soft in the emergency department, but responded to IV fluids. Antihypertensives are on hold at this time still with normal bp, (10) Depression with anxiety: Code(s): F41.8 - Other specified anxiety disorders Status: Acute Assessment and Plan: The patient uses CBD gummies at home for her anxiety, which cannot be used here. Continue citalopram. Lorazepam will be discontinued, as this is a n
[2020-06-17] MEDS: ACETAMINOPHEN 325 MG TABLET 650 MG PO (17:27)
--- NOTE | 2020-06-17 19:30 | PC.NURSE ---
Report called to Harini at [facility].
[2020-06-17 20:00] VITALS: BP 118/69; PULSE 92; RESP 16; TEMP 36.1; O2SAT 98
--- NOTE | 2020-06-17 23:01 | PC.NURSE ---
0010 pt leaves floor w/ all belongings including cell phone and transfer packet. this rn attempted to call [facility] to give pt's ETA but there was no answere.
--- NOTE | 2020-06-18 18:12 | P.DS_ITS ---
DS: Admitting Diagnosis Admitting Diagnosis Admitting Diagnosis: Chest pain. DS: Discharge Diagnosis Discharge Diagnosis (1) Chest pain: Code(s): R07.9 - Chest pain, unspecified Status: Acute Assessment and Plan: * Patient maintained that she was having chest discomfort due to her anxiety, however her troponin level is elevated but flat with renal failure. * Given reports of a significant workup at [facility] within the last month (2) Elevated troponin: Code(s): R79.89 - Other specified abnormal findings of blood chemistry Status: Acute Assessment and Plan: * troponins have been flat, and likely are not indicative of acute coronary syndrome. * echo revealed no wall motion abnormalities * Plan is as detailed above. (3) Acute kidney injury: Code(s): N17.9 - Acute kidney failure, unspecified Status: Acute Assessment and Plan: * She was profoundly dehydrated and this was the etiology of her renal failure. * with IV fluid rehydration and repeat renal function today revealed a creatinine of 0.8 at discharge (4) Acute dehydration: Code(s): E86.0 - Dehydration Status: Acute Assessment and Plan: * It does not sound as though she has been eating or drinking well and here before discharge she is taking adequate fluid in eating better with her BUN 14 and creatinine 0.8 at discharge (5) Urinary tract infection: Qualifiers: Hematuria presence: without hematuria Urinary tract infection type: acute cystitis Qualified Code(s): N30.00 - Acute cystitis without hematuria Code(s): N39.0 - Urinary tract infection, site not specified Status: Acute Assessment and Plan: * . grew 100,000 of both Klebsiella and E coli and both sensitive to ceftriaxone and receive 5 days of IV therapy here and prescribed 2 days of C ipro 500 b.i.d. on discharge for total 7 day treatment (6) Metabolic encephalopathy: Code(s): G93.41 - Metabolic encephalopathy Status: Acute Assessment and Plan: * Multifactorial in etiology to include dehydration, electrolyte abnormalities, urinary tract infection, and delirium likely due to the addition of Ativan in the setting of a new environment. * her mentation has improved with hydration, electrolyte repletion, antibiotics, and cessation of Ativan. * TSH and B12 normal, CT of the brain no acute changes (7) Abnormal chest x-ray: Code(s): R93.89 - Abnormal findings on diagnostic imaging of other specified body structures Status: Acute Assessment and Plan: * Minimal airspace opacities of the left lung consistent with atelectasis versus pneumonia. * Pneumonia seems less likely by history however she was on a COVID unit at [place] thus she was tested and found to be negative (8) Electrolyte abnormality: Code(s): E87.8 - Other disorders of electrolyte and fluid balance, not elsewhere classified Status: Acute Assessment and Plan: * Including mild hyponatremia, hypokalemia, and hypochloremia. * Secondary to dehydration
--- NOTE | 2020-06-18 18:12 | PM.DS ---
DS: Admitting Diagnosis Admitting Diagnosis Admitting Diagnosis: Chest pain. DS: Discharge Diagnosis Discharge Diagnosis (1) Chest pain: Code(s): R07.9 - Chest pain, unspecified Status: Acute Assessment and Plan: Patient maintained that she was having chest discomfort due to her anxiety, however her troponin level is elevated but flat with renal failure. Given reports of a significant workup at [facility] within the last month (2) Elevated troponin: Code(s): R79.89 - Other specified abnormal findings of blood chemistry Status: Acute Assessment and Plan: troponins have been flat, and likely are not indicative of acute coronary syndrome. echo revealed no wall motion abnormalities Plan is as detailed above. (3) Acute kidney injury: Code(s): N17.9 - Acute kidney failure, unspecified Status: Acute Assessment and Plan: She was profoundly dehydrated and this was the etiology of her renal failure. with IV fluid rehydration and repeat renal function today revealed a creatinine of 0.8 at discharge (4) Acute dehydration: Code(s): E86.0 - Dehydration Status: Acute Assessment and Plan: It does not sound as though she has been eating or drinking well and here before discharge she is taking adequate fluid in eating better with her BUN 14 and creatinine 0.8 at discharge (5) Urinary tract infection: Qualifiers: Hematuria presence: without hematuria Urinary tract infection type: acute cystitis Qualified Code(s): N30.00 - Acute cystitis without hematuria Code(s): N39.0 - Urinary tract infection, site not specified Status: Acute Assessment and Plan: . grew 100,000 of both Klebsiella and E coli and both sensitive to ceftriaxone and receive 5 days of IV therapy here and prescribed 2 days of Cipro 500 b.i.d. on discharge for total 7 day treatment (6) Metabolic encephalopathy: Code(s): G93.41 - Metabolic encephalopathy Status: Acute Assessment and Plan: Multifactorial in etiology to include dehydration, electrolyte abnormalities, urinary tract infection, and delirium likely due to the addition of Ativan in the setting of a new environment. her mentation has improved with hydration, electrolyte repletion, antibiotics, and cessation of Ativan. TSH and B12 normal, CT of the brain no acute changes (7) Abnormal chest x-ray: Code(s): R93.89 - Abnormal findings on diagnostic imaging of other specified body structures Status: Acute Assessment and Plan: Minimal airspace opacities of the left lung consistent with atelectasis versus pneumonia. Pneumonia seems less likely by history however she was on a COVID unit at [place] thus she was tested and found to be negative (8) Electrolyte abnormality: Code(s): E87.8 - Other disorders of electrolyte and fluid balance, not elsewhere classified Status: Acute Assessment and Plan: Including mild hyponatremia, hypokalemia, and hypochloremia. Secondary to dehydration in the setting of thiazide diuretic use. Electrolytes all improved, k 4.3 day of discharge (9) Hypertension: Code(s): I10 - Essential (primary) hypertension Status: Acute Assessment and Plan: Blood pressures were soft in the emergency department, but responded to IV fluids. Antihypertensives are on hold at this time still with normal bp, so continue to hold her lo
== END 2020-06-17 22:45 | disposition swing bed (61) | DRG 682 ==
LOC: ANHED 13:00 → ANHICU 13:38 → ANH3MEDSUR 06-15 09:58 → ANHICU 06-21 10:45
PROVIDERS: Internal Medicine; Physician Assistant; Admitting Provider Internal Medicine; Emergency Provider Emergency Medicine; PCP Internal Medicine; Visit Provider Internal Medicine
DX: N17.9 Acute kidney failure, unspecified (principal); G93.41 Metabolic encephalopathy; N39.0 Urinary tract infection, site not specified; E87.1 Hypo-osmolality and hyponatremia; Z23 Encounter for immunization; Z20.828 Contact with and (suspected) exposure to other viral communicable diseases; B96.20 Unspecified Escherichia coli [E. coli] as the cause of diseases classified elsewhere; B96.89 Other specified bacterial agents as the cause of diseases classified elsewhere; E86.0 Dehydration; E87.6 Hypokalemia; F03.90 Unspecified dementia, unspecified severity, without behavioral disturbance, psychotic disturbance, mood disturbance, and anxiety; E87.8 Other disorders of electrolyte and fluid balance, not elsewhere classified; I10 Essential (primary) hypertension; F41.8 Other specified anxiety disorders; E78.5 Hyperlipidemia, unspecified; M48.00 Spinal stenosis, site unspecified; K21.9 Gastro-esophageal reflux disease without esophagitis; Z98.1 Arthrodesis status; Z87.891 Personal history of nicotine dependence
CPT/HCPCS: 36415; 70450; 71045; 72128; 72131; 80048; 80053; 80069; 81001; 82274; 82550; 82607; 82728; 82746; 83540; 83550; 83605; 83735; 84100; 84443; 84484; 85025; 85027; 85046; 85610; 85730; 87040; 87077; 87086; 87088; 87186; 87635; 90471; 90686; 93005; 96365; 96375; 97110; 97161; 97166; 97530; 97535; 99285; A9270; C8929; C9803; G0008; G0378; J0456; J0696; J1650; J3480; J7030; J7050; Q9957; U0003